=== PATIENT | male | born 1995 | race African-American/Black ===

== ENCOUNTER 2019-02-18 11:54 | Emergency (ER) | payer SELFPAY ==
[2019-02-18] MEDS ORDERED: KETOROLAC 30 MG/ML INJ ONE (13:10)
--- NOTE | 2019-02-18 13:10 | ER ---
Nurse's Notes [facility] Name: Becca Kerr Age: 23 yrs Sex: Male : 1995 Arrival Date: 02/18/2019 Time: 11:55 Bed 12 Private MD: Diagnosis: Crushing injury of right foot;Pain in right foot Presentation: 02/18 12:11 Presenting complaint: Patient states: R foot was crushed under a metal door. pain to ch top of foot. Transition of care: patient was not received from another setting of care. Onset of symptoms was February 18, 2019 at 10:30. Risk Assessment: Do you want to hurt yourself or someone else? Patient reports no desire to harm self or others. Initial Sepsis Screen: Does the patient meet any 2 criteria? No. Patient's initial sepsis screen is negative. Does the patient have a suspected source of infection? No. Patient's initial sepsis screen is negative. Care prior to arrival: None. 12:11 Method Of Arrival: Wheelchair 12:11 Acuity: FOUZIA 4 ch Triage Assessment: 12:13 General: Appears in no apparent distress. comfortable, Behavior is calm, cooperative, ch appropriate for age. Pain: Complains of pain in right foot Pain currently is 7 out of 10 on a pain scale. Musculoskeletal: Capillary refill < 3 seconds, in bilateral toes. Range of motion: limited in right ankle. 12:20 Injury Description: Crush injury sustained to right foot is slight swelling was ch sustained 2-4 hours ago. Historical: - Allergies: 12:12 No Known Allergies; ch - Home Meds: 12:12 None [Active]; ch - PMHx: 12:12 None; ch - PSHx: 12:12 None; ch - Immunization history:: Adult Immunizations up to date. - Social history:: Smoking status: Patient/guardian denies using tobacco. - Ebola Screening: : Patient negative for fever greater than or equal to 101.5 degrees Fahrenheit, and additional compatible Ebola Virus Disease symptoms Patient denies exposure to infectious person Patient denies travel to an Ebola-affected area in the 21 days before illness onset No symptoms or risks identified at this time. Screenin:43 Abuse screen: Denies threats or abuse. Denies injuries from another. Nutritional ch screening: No deficits noted. Tuberculosis screening: No symptoms or risk factors identified. Fall Risk None identified. Assessment: 12:43 Reassessment: Patient appears in no apparent distress at this time. No changes from previously documented assessment. Patient and/or family updated on plan of care and expected duration. Pain level reassessed. Patient is alert, oriented x 3, equal unlabored respirations, skin warm/dry/pink. General: Appears in no apparent distress. uncomfortable, Behavior is calm, cooperative, appropriate for age. Neuro: No deficits noted. Respiratory: Airway is patent Respiratory effort is even, unlabored. GI: No signs and/or symptoms were reported involving the gastrointestinal system. Musculoskeletal: Capillary refill < 3 seconds, in bilateral fingers. toes. 12:43 Cardiovascular: No deficits noted. Vital Signs: 12:13 BP 111 / 71; Pulse 57; Resp 18; Temp 98.6; Pulse Ox 99% on R/A; Weight 117.93 kg; ch Height 5 ft. 11 in. (180.34 cm); Pain 7/10; 12:13 Body Mass Index 36.26 (117.93 kg, 180.34 cm) ED Course: 11:55 Patient arrived in ED. as 12:05 Nori Orellana FNP-C is [facility]. snw 12:05 Adolfo Richardson MD is Attending Physician. snw 12:12 Triage completed. ch 12:13 Arm band placed on left wrist. Patient placed in an exam room, in a wheelchair. 12:43 Radha Li, RN is Primary Nurse. 12:43 No apparent distress. Resting quietly. 12:43 Patient has correct armband on for positive identification. Bed in low position. Call light in reach. Warm blanket given. Ice pack to injury. 12:43 No provider procedures requiring assistance completed. Patient did not have IV access during this emergency room visit. 13:08 Foot Right 3 View XRAY In Process Unspecified. EDMS 13:20 Raul wrap to right foot CMS intact post raul wrap. Administered Medications: 13:12 Drug: TORadol 30 mg Route: IM; Site: left deltoid; 13:25 Follow up: Response: No adverse reaction Outcome: 13:09 Discharge ordered by . snw 13:22 Discharged to home ambulatory. 13:22 Condition: improved 13:22 Discharge instructions given to patient, family, Instructed on discharge instructions, follow up and referral plans. medication usage, Demonstrated understanding of instructions, follow-up care, medications, Prescriptions given X 1. 13:25 Patient left the ED. Signatures: Dispatcher [employer] Radha Lloyd, RN RN Nori Orellana, ARCHIVIST-C ARCHIVIST-Csnw Peggy Lyles as
--- NOTE | 2019-02-18 13:10 | EDPHYS ---
Physician Documentation [facility] Name: Becca Kerr Age: 23 yrs Sex: Male : 1995 Arrival Date: 02/18/2019 Time: 11:55 Bed 12 Private MD: ED Physician Adolfo Richardson HPI: 02/18 13:12 This 23 yrs old Black Male presents to ER via Wheelchair with complaints of Foot Injury.snw 13:12 The patient presents with a contusion, a crush injury, from a heavy object, pain. The snw complaints affect the dorsum of right foot. Context: resulted from a crush injury, from a machinery, the patient can partially bear weight, the patient is able to ambulate. Onset: The symptoms/episode began/occurred suddenly, just prior to arrival. Associated signs and symptoms: The patient has no apparent associated signs or symptoms. Severity of symptoms: At their worst the symptoms were mild. The patient has not experienced similar symptoms in the past. It is unknown whether or not the patient has recently seen a physician. pt wearing steel toed boots at time of injury. Historical: - Allergies: 12:12 No Known Allergies; ch - Home Meds: 12:12 None [Active]; ch - PMHx: 12:12 None; ch - PSHx: 12:12 None; ch - Immunization history:: Adult Immunizations up to date. - Social history:: Smoking status: Patient/guardian denies using tobacco. - Ebola Screening: : Patient negative for fever greater than or equal to 101.5 degrees Fahrenheit, and additional compatible Ebola Virus Disease symptoms Patient denies exposure to infectious person Patient denies travel to an Ebola-affected area in the 21 days before illness onset No symptoms or risks identified at this time. ROS: 13:12 Constitutional: Negative for fever, chills, and weight loss, Eyes: Negative for injury, snw pain, redness, and discharge, ENT: Negative for injury, pain, and discharge, Neck: Negative for injury, pain, and swelling, Cardiovascular: Negative for chest pain, palpitations, and edema, Respiratory: Negative for shortness of breath, cough, wheezing, and pleuritic chest pain, Abdomen/GI: Negative for abdominal pain, nausea, vomiting, diarrhea, and constipation, Back: Negative for injury and pain, : Negative for injury, bleeding, discharge, and swelling, Skin: Negative for injury, rash, and discoloration, Neuro: Negative for headache, weakness, numbness, tingling, and seizure, Psych: Negative for depression, anxiety, suicide ideation, homicidal ideation, and hallucinations. 13:12 MS/extremity: Positive for injury or acute deformity, contusion, decreased range of motion, pain, of the right foot. Exam: 13:12 Constitutional: This is a well developed, well nourished patient who is awake, alert, snw and in no acute distress. Head/Face: Normocephalic, atraumatic. Eyes: Pupils equal round and reactive to light, extra-ocular motions intact. Lids and lashes normal. Conjunctiva and sclera are non-icteric and not injected. Cornea within normal limits. Periorbital areas with no swelling, redness, or edema. ENT: Nares patent. No nasal discharge, no septal abnormalities noted. Tympanic membranes are normal and external auditory canals are clear. Oropharynx with no redness, swelling, or masses, exudates, or evidence of obstruction, uvula midline. Mucous membranes moist. Neck: Trachea midline, no thyromegaly or masses palpated, and no cervical lymphadenopathy. Supple, full range of motion without nuchal rigidity, or vertebral point tenderness. No Meningismus. Chest/axilla: Normal chest wall appearance and motion. Nontender with no deformity. No lesions are appreciated. Cardiovascular: Regular rate and rhythm with a normal S1 and S2. No gallops, murmurs, or rubs. Normal PMI, no JVD. No pulse deficits. Respiratory: Lungs have equal breath sounds bilaterally, clear to auscultation and percussion. No rales, rhonchi or wheezes noted. No increased work of breathing, no retractions or nasal flaring. Abdomen/GI: Soft, non-tender, with normal bowel sounds. No distension or tympany. No guarding or rebound. No evidence of tenderness throughout. Back: No spinal tenderness. No costovertebral tenderness. Full range of motion. Skin: Warm, dry with normal turgor. Normal color with no rashes, no lesions, and no evidence of cellulitis. Neuro: Awake and alert, GCS 15, oriented to person, place, time, and situation. Cranial nerves II-XII grossly intact. Motor strength 5/5 in all extremities. Sensory grossly intact. Cerebellar exam normal. Normal gait. Psych: Awake, alert, with orientation to person, place and time. Behavior, mood, and affect are within normal limits. 13:12 Musculoskeletal/extremity: Extremities: grossly normal except: noted in the right foot: contusion, pain. Vital Signs: 12:13 BP 111 / 71; Pulse 57; Resp 18; Temp 98.6; Pulse Ox 99% on R/A; Weight 117.93 kg; ch Height 5 ft. 11 in. (180.34 cm); Pain 7/10; 12:13 Body Mass Index 36.26 (117.93 kg, 180.34 cm) ch MDM: 12:55 Patient medically screened. snw 13:14 Data reviewed: vital signs, nurses notes. Data interpreted: Pulse oximetry: on room air snw is 99 %. Interpretation: normal. Counseling: I had a detailed discussion with the patient and/or guardian regarding: the historical points, exam findings, and any diagnostic results supporting the discharge/admit diagnosis, radiology results, the need for outpatient follow up, to return to the emergency department if symptoms worsen or persist or if there are any questions or concerns that arise at home. Special discussion: Based on the history and exam findings, there is no indication for further emergent testing or inpatient evaluation. I discussed with the patient/guardian the need to see the primary care provider for further evaluation of the symptoms. 02/18 12:05 Order name: Foot Right 3 View XRAY; Complete Time: 13:20 snw Administered Medications: 13:12 Drug: TORadol 30 mg Route: IM; Site: left deltoid; 13:25 Follow up: Response: No adverse reaction Disposition: 17:14 Co-signature as Attending Physician, Adolfo Richardson MD. Disposition: 02/18/19 13:09 Discharged to Home. Impression: Crushing injury of right foot, Pain in right foot. - Condition is Stable. - Discharge Instructions: Elastic Bandage and RICE, Foot Contusion, Musculoskeletal Pain, Cryotherapy, Foot Pain. - Prescriptions for Diclofenac Sodium 75 mg Oral Tablet Sustained Release - take 1 tablet by ORAL route 2 times per day; 30 tablet. - Work release form, Medication Reconciliation Form, Thank You Letter, Antibiotic Education, Prescription Opioid Use form. - Follow up: Private Physician; When: 1 week; Reason: Recheck today's complaints, Continuance of care, Re-evaluation by your physician. Signatures: Dispatcher [employer] Radha Lloyd RN RN Nori Jack, DEANA-C BRAND MGR-Martw Adolfo Richardson MD MD gs Corrections: (The following items were deleted from the chart) 13:25 13:09 02/18/2019 13:09 Discharged to Home. Impression: Crushing injury of right foot; ch Pain in right foot. Condition is Stable. Forms are Medication Reconciliation Form, Thank You Letter, Antibiotic Education, Prescription Opioid Use. Follow up: Private Physician; When: 1 week; Reason: Recheck today's complaints, Continuance of care, Re-evaluation by your physician. snw
--- NOTE | 2019-02-18 13:16 | RAD REPORT ---
EXAM DESCRIPTION: RAD - Foot Right 3 View - 02/18/2019 1:07 pm CLINICAL HISTORY: Pain;Smash injury COMPARISON: No comparisons FINDINGS: No acute fracture or dislocation is seen.
[2019-02-18 13:30] VITALS: BP 111/71; TEMP 98.6; O2SAT 99
== END 2019-02-18 13:25 | disposition home or self-care (01) ==
LOC: ER 11:54
DX: S97.81XA Crushing injury of right foot, initial encounter (principal); W31.9XXA Contact with unspecified machinery, initial encounter; Y93.89 Activity, other specified; Y92.89 Other specified places as the place of occurrence of the external cause; Y99.8 Other external cause status
CPT/HCPCS: 96372; 99284